=== PATIENT | female | born 1985 | race Caucasian/White ===

== ENCOUNTER 2022-02-05 14:50 | Outpatient (REF) | payer OTHER, SELFPAY ==
[2022-02-05 15:10] LABS: MANUAL DIFF FLAG NO
[2022-02-05 15:14] LABS: Basophils Percent Auto 0.4 % (0-2); Eosinophils Absolute Auto 0.1 X10*3/uL (0.0-0.4); Eosinophils Percent Auto 1.6 % (0-4); Hematocrit 43.3 % (37.0-47.0); Hemoglobin 14.5 g/dl (12.0-16.0); Imm Gran Abs Auto 0.03 X10*3/uL (0.00-0.03); Imm Gran Pct Auto 0.4 % (0.0-0.4); Lymphocytes Absolute Auto 1.7 X10*3/uL (1.2-4.9); Lymphocytes Percent Auto 23.2 % (20-40); Mean Corpuscular HGB Conc 33.5 g/dl (31.0-35.0); Mean Corpuscular Hemoglobin 30.2 pg (27.0-33.0); Mean Corpuscular Volume 90.2 fL (80.0-98.0); Mean Platelet Volume 9.7 fL (9.4-12.3); Monocytes Absolute Auto 0.6 X10*3/uL (0.1-1.2); Monocytes Percent Auto 7.8 % (2-11); Neutrophils Absolute Auto 4.8 x10*3/uL (2.0-8.3); Neutrophils Percent Auto 66.6 % (45-73); Platelet Count 280 X10*3/uL (160-400); Red Cell Distribution Width 11.9 % (11.0-16.0); White Blood Count 7.3 X10*3/uL (4.8-10.8)
[2022-02-05 17:07] LABS: Erythrocyte Sedimentation Rate 5 MM/HR (0-20)
[2022-02-05 17:33] LABS: Cholesterol 260 mg/dL; HDL Cholesterol 57 mg/dL; LDL Cholesterol Calculated 158 mg/dl; Triglycerides 225 mg/dL
[2022-02-05 17:55] LABS: Thyroid Stimulating Hormone 1.34 uIU/mL (0.32-4.0)
== END 2022-02-05 14:51 | disposition home or self-care (01) ==
LOC: HO.LAB 14:50
PROVIDERS: PCP Physician Assistant Medical; Visit Provider Psychiatry & Neurology Neurology
DX: D33.3 Benign neoplasm of cranial nerves (principal)
CPT/HCPCS: 36415; 80061; 84443; 85025; 85652

== ENCOUNTER 2022-02-13 15:03 | Outpatient (REF) | payer OTHER, SELFPAY ==
--- NOTE | ~2022-02-13 | MR_ITS ---
EXAMINATION: MR BRAIN WITHOUT AND WITH CONTRAST CLINICAL INFORMATION: 36-year-old with self-reported left-sided decreased hearing, tinnitus, right-sided headaches and vertigo. Evaluate for acoustic neuroma. COMPARISON: None TECHNIQUE: Multiplanar, multisequence MRI of the brain/IACs was obtained before and after the intravenous administration of 7.5 mL Gadavist. FINDINGS: IACs: Bilaterally symmetric, no mass lesions or abnormal enhancement. CN VII-VIII complexes normal. AICA Loops: None Membranous Labyrinths: Normal, no abnormal enhancement. CP Angle Cisterns: No mass lesions or abnormal enhancement. Brain Volume: Within normal limits within the limitations of qualitative assessment. Brain and Meninges: DWI sequence demonstrates no restricted diffusion to suggest acute or subacute cerebral ischemia. The brain is normal in morphology. Gradient refocused imaging demonstrates a 7 mm focus of susceptibility-weighted signal loss in the right subcortical frontal white matter with no definite associated abnormal enhancement which has an appearance consistent with a developmental cavernous venous malformation. Otherwise, the brain parenchyma is normal in signal intensity. No extra-axial fluid collections, space-occupying process, mass lesion or pathologic enhancement. [place]-white matter interface is preserved. 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 Vessels: Normal signal voids are seen in the visualized major intracranial vessels. Ventricles and Subarachnoid Spaces: The ventricular system and subarachnoid spaces are within normal limits without hydrocephalus. Osseous Structures, Sinuses/Mastoids, Extracranial Soft Tissues: Unremarkable. MR/MR head/brain wo/w con IMPRESSION: 1. No evidence for intracranial mass lesion or abnormal enhancement. Normal appearance to the auditory apparatus, IACs, inner ear structures and CP angle cisterns. 2. 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 3. 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
== END 2022-02-13 15:04 | disposition home or self-care (01) ==
LOC: HO.MRI 15:03
PROVIDERS: Visit Provider Psychiatry & Neurology Neurology
DX: D33.3 Benign neoplasm of cranial nerves (principal)
CPT/HCPCS: 70553; A9585